=== PATIENT | female | born 1965 | race Two or more races ===

== ENCOUNTER 2018-08-10 11:44 | Outpatient (CLI) | payer OTHER | END 2018-08-10 11:50 | disposition home or self-care (01) | LOC: EKG 11:44 | DX: Z01.810 Encounter for preprocedural cardiovascular examination (principal) ==

== ENCOUNTER 2018-11-01 07:18 | Emergency (ER) | payer OTHER ==
[~2018-11-01] VITALS: Ht 167.6 cm; Wt 83.5 kg
== END 2018-11-01 16:34 | disposition home or self-care (01) ==
LOC: ER 07:18
DX: M25.561 Pain in right knee (principal)